=== PATIENT | male | born 1970 | race Caucasian/White ===

== ENCOUNTER 2016-10-11 09:10 | Emergency (ER) | payer OTHER ==
[2016-10-11 09:27] VITALS: BP 135/92; PULSE 72; RESP 20; TEMP 98.1; O2SAT 96
--- NOTE | 2016-10-11 10:19 | UCPHY ---
H & P Time Seen by Provider: 10/11/16 09:25 Patient Type: Established HPI/ROS: This patient reports abrupt onset of left testicle pain that was severe intensity after taking a shower this morning. [place]chran like (he) was kicked in the balls." He reported the pain was 10/10 and radiated to his left lower belly. He had associated nausea and a dry heave. Symptoms persisted for 2 hours from 7 -9 shortly after arrival here to the clinic he reports spontaneous improvement in the discomfort to mild discomfort currently. He states that currently the discomfort is left testicles 1 to 2/10. During the episode he reached down and did not feel any significant testicular swelling or obvious tenderness. ROS: No recent trauma. No fevers chills or other constitutional symptoms. GI: Normal bowel movements. Still tolerating good p.o. intake up until this morning : No dysuria. No urethral discharge. No genital lesions. No flank pain. 7 point ROS is otherwise negative. Past Medical/Surgical History: Otherwise healthy. No prior testicle complaints. Social History: No STD risk factors. Smoking Status: Current some day smoker Physical Exam: Physical Exam Vital signs are normal. General: No acute distress HEENT: Atraumatic. Eyes: Pupils equal and react to light. Extraocular motions are intact. Lungs: No respiratory distress. Cardiac: Brisk capillary refill is intact throughout. Skin: No rash or pallor. Back: No CVA tenderness Abdominal exam: No belly tenderness. No inguinal hernia is evident on exam. : Currently no testicular swelling. Cremasteric reflex is intact. No significant epididymal tenderness. Penis is circumcised with no urethral discharge. There are no skin lesions Neuro: Alert with no sensorimotor deficits. Differential diagnosis: Appendiceal testes torsion, testicular torsion-resolved , epididymitis, varicocele, I UTI, kidney stone/ureteral stone Constitutional: Initial Vital Signs Temperature (C) 36.7 C 10/11/16 09:24 Heart Rate 72 10/11/16 09:24 Respiratory Rate 20 10/11/16 09:24 Blood Pressure 135/92 H 10/11/16 09:24 O2 Sat (%) 96 10/11/16 09:24 O2 Delivery Mode Room Air Allergies/Adverse Reactions: No Known Allergies Allergy (Verified 10/11/16 09:23) Home Medications: Medication Instructions Recorded NK [No Known Home Meds] 10/11/16 MDM/Departure - MDM Diagnostics: Testicular ultrasound: Normal per Clint Gonzalez-radiologist who read the study. ED Course/Re-evaluation: Patient declined analgesics since his pain had spontaneously improved. Discussion: I suspect this patient actually had ureteral colic. He had abrupt onset of pain in the groin the last for 2 hours and resolved and he now has microscopic hematuria. He had benign exam with no testicular tenderness, epididymal tenderness or other findings and a normal ultrasound of the testicle. He will follow up with primary care physician to recheck a urinalysis and 5-10 days and follow up with urology for any ongoing symptoms or hematuria for further workup I counseled the patient regarding ureteral colic and kidney stones in some detail. At the time of discharge she is comfortable with no significant symptoms and normal vital signs. - Depart Disposition: Home, Routine, Self-Care Clinical Impression: Ureteral colic, Microscopic hematuria Condition: Good Instructions: Hematuria (ED) Additional Instructions: Diagnoses: 1. Ureteral colic 2. Microscopic hematuria I suspect the past a ureteral stone today as we discussed. Plan: Drink plenty fluids Ibuprofen for discomfort if needed Follow up with your primary care physician, Dr. Sequeira in 3-7 days to recheck a urinalysis and make sure that the hematuria has resolved. If he have persistent hematuria, follow up with Dr. Fraser-urologist for further evaluation. Go to the emergency department for further evaluation if he develops severe pain again. Referrals: Alonso Sequeira DO [Primary Care Provider] - As per Instructions Asael Fraser MD [Medical Doctor] - As per Instructions - PQRS PQRS Measurement: NA
[2016-10-11 11:04] LABS: COLOR YELLOW; LEUKOCYTE ESTERASE,URINE NEGATIVE (NEGATIVE); NITRITE,URINE NEGATIVE (NEGATIVE); PH,URINE 6.5 (5.0-7.5)
[2016-10-11 11:12] LABS: MUCUS 2+ /lpf (NONE-1+); RBC,URINE 25-50 /hpf (0-3); WBC,URINE 0-1 /hpf (0-3)
[2016-10-11 11:13] LABS: BACTERIA TRACE /hpf (NONE SEEN); HYALINE CASTS 0-1 /lpf (0-1)
== END 2016-10-11 12:21 | disposition home or self-care (01) ==
LOC: CED 09:10
DX: N23 Unspecified renal colic (principal); R31.29 Other microscopic hematuria
CPT/HCPCS: 76870-PO; 81003-PO; 81015-PO; 99214-PO; G0463-PO

== ENCOUNTER 2017-07-22 17:49 | Emergency (ER) | payer OTHER ==
[2017-07-22 18:01] VITALS: PULSE 88; RESP 16; TEMP 97.9
[2017-07-22] MEDS ORDERED: NS 1,000 ML IV ONE (18:09)
[2017-07-22] MEDS ORDERED: KETOROLAC 30 MG/1 ML SDV IVP ONE (18:19)
[2017-07-22] MEDS ORDERED: ACETAMINOPHEN 500 MG TAB PO ONE (18:20)
[2017-07-22 18:23] LABS: % IMMATURE GRANULYOCYTES 0.5 % (0.0-1.1); ABSOLUTE IMMATURE GRANULOCYTES 0.06 10^3/uL (0.00-0.10); ADD DIFF? NO; ADD MORPH? NO; ADD SCAN? NO; ATYPICAL LYMPHOCYTE FLAG 0 (0-99); FRAGMENT RBC FLAG 0 (0-99); HEMATOCRIT 41.8 % (40.0-51.0); HEMOGLOBIN 15.2 g/dL (13.7-17.5); LEFT SHIFT FLG 0 (0-99); LIPEMIA HEMOLYSIS FLAG 90 (0-99); MEAN CELL HEMOGLOBIN 31.9 pg (27.9-34.1); MEAN CELL HEMOGLOBIN CONCENTR. 36.4 g/dL (32.4-36.7); MEAN CELL VOLUME 87.6 fL (81.5-99.8); MEAN PLATELET VOLUME 9.6 fL (8.7-11.7); PLATELET CLUMPS FLAG 0 (0-99); PLATELET COUNT 197 10^3/uL (150-400); RED BLOOD CELL COUNT 4.77 10^6/uL (4.40-6.38); RED CELL DISTRIBUTION WIDTH 11.9 % (11.5-15.2)
[2017-07-22 18:35] LABS: ANION GAP 17 mEq/L (8-16); CALCIUM 8.7 mg/dL (8.5-10.4); CARBON DIOXIDE 23 mEq/l (22-31); CHLORIDE 88 mEq/L (97-110); CREATININE 1.1 mg/dL (0.7-1.3); GLOMERULAR FILTRATION RATE > 60; GLUCOSE 117 mg/dL (70-100); POTASSIUM 3.7 mEq/L (3.5-5.2); SODIUM 128 mEq/L (134-144)
[2017-07-22 19:36] LABS: COLOR PALE YELLOW; LEUKOCYTE ESTERASE,URINE NEGATIVE (NEGATIVE); NITRITE,URINE NEGATIVE (NEGATIVE)
[2017-07-22 20:01] LABS: WBC,URINE 0-1 /hpf (0-3)
[2017-07-22 20:02] LABS: BACTERIA TRACE /hpf (NONE SEEN); MUCUS 1+ /lpf (NONE-1+)
[2017-07-22 20:23] LABS: ANION GAP 15 mEq/L (8-16); CALCIUM 8.3 mg/dL (8.5-10.4); CARBON DIOXIDE 23 mEq/l (22-31); CHLORIDE 90 mEq/L (97-110); CREATININE 1.1 mg/dL (0.7-1.3); GLOMERULAR FILTRATION RATE > 60; GLUCOSE 98 mg/dL (70-100); POTASSIUM 3.8 mEq/L (3.5-5.2); SODIUM 128 mEq/L (134-144)
--- NOTE | 2017-07-22 20:24 | EDPHY ---
H & P Time Seen by Provider: 07/22/17 18:08 HPI/ROS: This patient had abrupt onset of left testicle pain while playing Frisbee golf without any significant exertion. He reports the pain is severe intensity-8/ 10. Onset was shortly prior to arrival in this persistent. He describes the pain as aching and squeezing in nature. He has no other associated symptoms. He had a similar episode in September that resolved prior to arrival and had workup that included testicular ultrasound that showed a varicocele on the left but no other significant abnormalities. He denies any acute trauma. ROS: Constitutional: No fevers or chills. No fatigue. HEENT: No complaints GI: No abdominal pain associated with this. No nausea or vomiting. No bloating. Musculoskeletal: No back pain : No dysuria. No hematuria. No flank pain. Integumentary: No skin rash. Neuro: No complaints Psychiatric: No complaints 10 point ROS is otherwise negative. Past Medical/Surgical History: Varicocele on the left. Otherwise healthy Social History: No STD risk factors. Smoking Status: Current some day smoker Physical Exam: General Appearance: Alert, initial moderate distress due to pain Eyes: Pupils equal and round no pallor or injection. ENT, Mouth: Mucous membranes moist. Respiratory: There are no retractions, lungs are clear to auscultation. Cardiovascular: Regular rate and rhythm. Gastrointestinal: Abdomen is soft and nontender, no masses, bowel sounds normal. Back: No CVA tenderness : Circumcised penis with no urethral discharge. Mild left testicle tenderness but no swelling. Cremasteric reflex is intact. No evidence of inguinal hernia Neurological: GCS 15 Skin: Warm and dry, no rashes. Psychiatric: Patient's initial anxious. Otherwise mood is normal DIFFERENTIAL DIAGNOSIS: After history and physical exam differential diagnosis was considered for ureteral stone, testicular torsion, symptomatic varicocele, other testicular pathology, UTI, prostatitis Constitutional: Initial Vital Signs Temperature (C) 36.6 C 07/22/17 17:55 Heart Rate 88 07/22/17 17:55 Respiratory Rate 16 07/22/17 17:55 Blood Pressure 145/74 H 07/22/17 17:55 O2 Sat (%) 97 07/22/17 17:55 O2 Delivery Mode Room Air Allergies/Adverse Reactions: No Known Allergies Allergy (Verified 07/22/17 17:55) Home Medications: Medication Instructions Recorded NK [No Known Home Meds] 10/11/16 MDM/Departure - MDM Diagnostics: Testicular ultrasound reveals left-sided varicocele unchanged from prior ultrasound no other significant findings. Imaging: Discussed imaging studies w/ call specialist Radiologist Medications Given: Discontinued Medications Acetaminophen (Tylenol) 1,000 mg PO EDNOW ONE Stop: 07/22/17 18:21 Last Admin: 07/22/17 18:35 Dose: 1,000 mg Sodium Chloride (Ns) 1,000 mls @ 0 mls/hr IV EDNOW ONE; Wide Open PRN Reason: Protocol Stop: 07/22/17 18:10 Last Admin: 07/22/17 18:30 Dose: 1,000 mls Ketorolac Tromethamine (Toradol) 30 mg IVP EDNOW ONE Stop: 07/22/17 18:20 Last Admin: 07/22/17 18:31 Dose: 30 mg ED Course/Re-evaluation: IV normal saline bolus Toradol IV Tylenol p. o. Patient had complete resolution of this pain. A review of the patient's labs reveals leukocytosis with otherwise normal CBC, chemistries initially showed low sodium-question spurious blood draw with potential saline and blood drop, urinalysis reveals minimal microscopic hematuria otherwise normal. In discussion with the patient he admits that he drank approximately 2 gal of water on top of usual significant water intake after the onset of symptoms consistent in might have a kidney stone. I suspect that is hyponatremia attributable to this significant water intake. His symptoms entirely resolved after the Toradol here. The differential diagnosis does include potential small ureteral stone but I think that he likely passed if that were the case given complete resolution of his symptoms. I counseled him regarding this. He does not have pyuria or bacteria. I do not think he has UTI. We ruled out testicular torsion or other significant testicular pathology. I advised him to increase his sodium intake in decreases water intake with plan to recheck his electrolytes at his primary care physician's office in a week or so. I did redraw the basic metabolic panel and the 2nd blood draw confirm the results of the initial basic metabolic panel with a sodium of 128. The patient also follow up with Urology regarding his varicocele and intermittent testicular pain. - Depart Disposition: Home, Routine, Self-Care Clinical Impression: Testicular pain, left, Varicocele present on ultrasound of scrotum, Hyponatremia Condition: Good Instructions: Hyponatremia (ED), Varicocele (ED) Additional Instructions: Diagnoses: 1. Left testicle pain-resolved 2. Microscopic hematuria 3. Varicocele 4. Hyponatremia Plan: Or other than drinking excessive water, try electrolyte drinks such as Gatorade. Increase your salt intake. Ibuprofen and/or Tylenol for any recurrent pain Follow up with urologist to recheck for any hematuria or ongoing testicular symptoms. Follow up with primary care physician to recheck your sodium level in a week or so. Return for any significant worsening despite the treatment plan Referrals: Alonso Sequeira DO [Primary Care Provider] - As per Instructions Asael Fraser MD [Medical Doctor] - As per Instructions
[2017-07-22 20:58] VITALS: BP 145/100; O2SAT 95
== END 2017-07-22 20:47 | disposition home or self-care (01) ==
LOC: CED 17:49
DX: I86.1 Scrotal varices (principal); E87.1 Hypo-osmolality and hyponatremia; E86.9 Volume depletion, unspecified; F17.200 Nicotine dependence, unspecified, uncomplicated
CPT/HCPCS: 76870-PO; 80048-PO; 81003-PO; 81015-PO; 84443-PO; 85025-PO; 96374; J1885

== ENCOUNTER → 2017-12-07 | Outpatient (CLI) | payer OTHER | LOC: BMCIMAGING 14:51 | PROVIDERS: ATTEND Podiatrist Foot & Ankle Surgery | DX: M79.671 Pain in right foot (principal); M21.271 Flexion deformity, right ankle and toes ==